=== PATIENT | female | born 1995 | race Caucasian/White ===

== ENCOUNTER 2019-06-04 14:45 | Outpatient (RCR) | payer OTHER, SELFPAY ==
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
--- NOTE | 2019-03-26 18:01 | PCPTNOTE ---
Addendum entered by Dipti Lerma, PT 03/26/19 18:01: cancelled appointment was for 03/27/19. Original Note: Patient called & cancelled scheduled appointment this date due to taking finals.
--- NOTE | 2019-03-31 10:22 | PCPTNOTE ---
Patient called & cancelled scheduled appointment this date due to weather.
--- NOTE | 2019-04-03 15:25 | PCPTNOTE ---
Patient did not show up for scheduled appointment this date.
--- NOTE | 2019-04-07 13:46 | PCPTNOTE ---
Patient called & cancelled scheduled appointment this date no reason reported
--- NOTE | 2019-04-17 10:25 | PCPTNOTE ---
Patient called & cancelled scheduled appointment this date due to having an eye appointment.
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
--- NOTE | 2019-05-12 14:57 | PCPTNOTE ---
Patient called & cancelled scheduled appointment this date due to not being able to attend.
--- NOTE | 2019-05-19 14:59 | PCPTNOTE ---
Patient did not show up for scheduled appointment this date.
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
== END 2019-06-05 09:33 | disposition home or self-care (01) ==
LOC: ANHPT 14:45
PROVIDERS: PCP Physician Assistant; Visit Provider Physician Assistant
DX: M62.838 Other muscle spasm (principal)
CPT/HCPCS: 97110; 97140; 97161

== ENCOUNTER 2019-06-12 14:13 | Emergency (ER) | payer OTHER, SELFPAY ==
--- NOTE | ~2019-06-12 | XR_ITS ---
EXAMINATION: XR thoracic spine 3V DATE: 06/12/2019 16:38 INDICATION: Upper right-sided thoracic and/spasm TECHNIQUE: One AP, lateral and lateral swimmer's views of the thoracic spine were obtained. COMPARISON: None. FINDINGS: 10 degrees thoracic dextroscoliosis measured between T5 and T9. Vertebral body and disc heights are n ormal. Paravertebral soft tissues are unremarkable. This was portions of the lungs are clear with no pleural effusion or pneumothorax. Visualized portion of the cardiac mediastinal silhouette is normal. IMPRESSION: 1. Mild thoracic dextroscoliosis. Reviewed, dictated and finalized at location A. ESSING MGR
[2019-06-12 14:18] VITALS: BP 115/76; PULSE 84; RESP 18; TEMP 36.9; O2SAT 100
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
[2019-06-12] MEDS: KETOROLAC (*BKC) 60 MG/2 ML VIAL IM (17:05)
== END 2019-06-12 17:55 | disposition home or self-care (01) ==
PROVIDERS: Emergency Provider Emergency Medicine; PCP Physician Assistant
DX: M41.84 Other forms of scoliosis, thoracic region (principal)
CPT/HCPCS: 72072; 96372; 99283; J1885

== ENCOUNTER 2020-04-01 13:00 | Outpatient (RCR) | payer OTHER, SELFPAY ==
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
--- NOTE | 2020-02-12 11:02 | PCPTNOTE ---
pt called and canceled today's appt, stated not able to make it, have something else to do
--- NOTE | 2020-02-24 11:08 | PCPTNOTE ---
Patient called & cancelled scheduled appointments this week due to getting test for COVID will call back once results are finalized.
--- NOTE | 2020-03-02 11:38 | PTOPEVAL ---
PHYSICAL THERAPY REEVALUATION AND UPDATED PLAN OF CARE 03-02-2020 Refer to the clinical summary below for her status compared to the initial evaluation. PT is to continue with treatment for neck pain, 2x/week for 4 weeks. Thank you for referring Jessica Ruiz to [facility].? ? Please review, sign, date and return this updated plan of care [facility]. I agree with and certify that the following plan of care is medically necessary. Referring Physician Date Attending Provider: VAHID Joseph *PT Outpatient Re-Evaluation Document 03/02/20 11:05 TACO (Rec: 03/02/20 11:38 TACO [id number]) Subjective Information Jessica reports: went to ER Query Text:As Reported By Patient/ due to back pain--not given Family any answers about it; had to miss a few sessions due to COVID testing, which was negative; needling and exercises have helped pain; Oswestry self assessment functional score of 38% limitation in function; wants to continue therapy for her neck; Pain Assessment Timing of Pain Assessment Timing of Pain Assessment Assessment Pain Scale Pain Scale Used Numeric (1 - 10) Self Report Pain Assessment Bilateral Neck Reported Pain Level 5 Pain Description Aching,Dull,Spasms,Tightness Radicular Pain Location headaches occur daily, usually start end day ~ 7PM, last few hours--takeOTC Pain Frequency Chronic Other Pain Description headaches pounding and ringing in head;awaken with pain in neck from sleep Lowest Pain Intensity 5 Greatest Pain Intensity 7 Pain Aggravating Factors Exercise/Activity Other Pain Aggravating Factors if sleep on couch;dancing- thrashing neck around; Pain Behaviors Anxious,Grimacing,Guarding Pain Score Pain Score 5: Self Report Interventions Used Interventions Used By Clinicians Exercise Pain Relief Interventions Used By Exercise,Heat,Ice,Inactivity/ Patient Rest Other Alleviating Interventions self massage over tight muscles Cervical and Lumbar ROM Cervical ROM Cervical ROM Comments sitting AROM cervical rotation R 60'- tight but not painful/ L 50' with tightness and pain R neck; Upper Extremity Muscle Strength Testing General Upper Extremity Strength Gross Upper Extremity Strength
--- NOTE | 2020-03-25 15:35 | PCPTNOTE ---
Patient called & cancelled scheduled appointment this date due to medical emergency.
--- NOTE | 2020-04-01 13:43 | PTOPEVAL ---
PHYSICAL THERAPY DISCHARGE 04-01-2020 Refer to the clinical summary below, for the comparison from her last reassessment to today. Discharge PT services this date; she is to continue to manage her pain with stretching, heat, positional changes and strengthening exercises. Thank you for referring Jessica Ruiz to [facility].? Please review, sign, date and return this discharge TERENCE. I agree with and certify that the following plan of care is medically necessary. Referring Physician Date Attending Provider: VAHID Joseph PT Discharge Report Document 04/01/20 13:10 TACO (Rec: 04/01/20 13:40 TACO [id number]) Subjective Information Jessica reports: doing Query Text:As Reported By Patient/ better, have learned stretches Family and ways to help pain; have been doing work outs--planks, push ups, yoga. Have muscle soreness of R shoulder due to work outs; with sleeping, after sleeping 5 hours, tend to wake up 1-2 times, due to neck pain or not tired anymore . Self assessment Oswestry score of 28% limitation in activity level. Pain Assessment Timing of Pain Assessment Timing of Pain Assessment Assessment Pain Scale Pain Scale Used Numeric (1 - 10) Self Report Pain Assessment Bilateral Neck Reported Pain Level 5 Pain Description Tightness Pain Frequency Chronic Other Pain Description L side of neck tight spots; Lowest Pain Intensity 3 Greatest Pain Intensity 6 Pain Aggravating Factors Exercise/Activity Other Pain Aggravating Factors thrash with dancing,sleep on couch;driving Pain Score Pain Score 5: Self Report Additional Pain Score Comments headaches- better, other medical issues too- acid reflux with abdominal pain upset the headaches; and had other medical issues too ; get pressure headaches and tightness- 2x/past week, last 2 hours, take advil- eases and diclofen muscle relaxer; - have not had any days could not get out of bed in morning ; Interventions Used Interventions Used By Clinicians Education Pain Relief Interventions Used By Inactivity/Rest Patient
== END 2020-04-02 07:38 | disposition home or self-care (01) ==
LOC: ANHPT 13:00
PROVIDERS: PCP Physician Assistant; Visit Provider Physician Assistant
DX: G89.29 Other chronic pain (principal)
CPT/HCPCS: 97110; 97140; 97161

== ENCOUNTER 2020-05-20 12:25 | Outpatient (CLI) | payer OTHER, SELFPAY ==
--- NOTE | ~2020-05-20 | US_ITS ---
EXAMINATION: US pelvic complete w TV DATE: 05/20/2020 13:09 INDICATION: Ovarian cyst Comparison:Ultrasound dated 03/18/2020 TECHNIQUE: Multiple transabdominal and endovaginal sonographic images of the pelvis performed. FINDINGS: The uterus measures 10.4 x 5.1 x 3.2 cm. The endometrial complex measures 2.4 mm. The right ovary measures 5.1 x 5.7 x 4 cm and the left ovary not visualized. There is a 5 cm right ov martha cyst. There is no free fluid in the pelvis. There are no abnormal masses seen on either side. IMPRESSION: 1. Simple right ovarian cyst measuring 5 cm. Reviewed, dictated and finalized at location A. LY CHAIN TECHNICIAN
== END 2020-05-20 12:26 | disposition home or self-care (01) ==
LOC: ANHIMG 12:30
PROVIDERS: PCP Physician Assistant; Visit Provider Nurse Practitioner Women's Health
DX: N83.291 Other ovarian cyst, right side (principal)
CPT/HCPCS: 76830; 76856

== ENCOUNTER 2020-06-11 20:55 | Emergency (ER) | payer OTHER, SELFPAY ==
--- NOTE | ~2020-06-11 | XR_ITS ---
EXAMINATION: XR chest 1V portable DATE: 06/11/2020 22:45 INDICATION: Shortness of breath. TECHNIQUE: A single frontal view of the chest was obtained. COMPARISON: Chest 2 views 05/10/2019 FINDINGS: The chest demonstrates clear lungs without pneumonia, pleural effusion, or pneumothorax. Th e heart size is normal. IMPRESSION: 1. No acute cardiopulmonary disease. Reviewed, dictated and finalized at location A. UP OPERATOR TOOL
--- NOTE | ~2020-06-11 | CT_ITS ---
EXAMINATION: CT abdomen pelvis w con DATE: 06/12/2020 01:12 INDICATION: Abdominal pain TECHNIQUE: Computed tomography (CT) of the abdomen and pelvis was performed with 100 cc Omnipaque 350 intravenous contrast. Automated exposure control and iterative reconstruction technique were employe d. Exam dose: 638.59 mGy-cm total exam DLP. COMPARISON: May 20, 2020 pelvic ultrasound FINDINGS: Lung bases are clear. Normal heart size. No pericardial or pleural effusion. No hepatic, splenic, pancreatic, adrenal or renal space-occupying mass lesion is evident. Normal marquis myrtle of the abdominal aorta. No intraperitoneal or retroperitoneal or pelvic mass lesion or adenopathy or ascites. Normal appendix. No bowel obstruction, bowel wall thickening, pneumatosis or intraperitoneal free air . 3.8 x 5 cm right ovarian cyst. Uterus and adnexal areas are otherwise unremarkable. Included skeletal structures are unremarkable. Small fat-containing umbilical hernia. IMPRESSION: 3.8 x 5 cm right ovarian cyst Reviewed, dictated and finalized at [facility]. Reviewed, dictated and finalized at location [facility]. ING INSPECTOR
[2020-06-11 21:12] VITALS: BP 147/83; PULSE 119; RESP 24; TEMP 36.6; O2SAT 100
--- NOTE | 2020-06-11 22:31 | ECG_ITS ---
Measurements Intervals [place] Rate: 107 P: 53 IL: 206 QRS: 34 QRSD: 94 T: 26 QT: 327 QTc: 438 Interpretive Statements SINUS TACHYCARDIA ABNORMAL ECG Electronically Signed On 06-12-2020 7:29:03 CUSTOMER DEVELOPMENT REPRESENTATIVE by Efraín Estrada D.O.
--- NOTE | 2020-06-11 22:48 | ED.GENADULT ---
HPI - General Adult General Chief complaint: Unspecified Stated complaint: I feel like I am dying I am puking Time Seen by Provider: 06/11/20 22:24 Source: RN notes reviewed History of Present Illness HPI narrative: Patient presents emergency department from home for multiple complaints. Patient's major complaint is that she has been having intermittent abdominal pain diffusely throughout the abdomen associated with nausea and vomiting states associated with this she has been having intermittent episodes of shortness of breath she states that she has not been feeling well for the past several days she denies any fever chills chest pain or any other symptoms states that she took [id number] medication for pain earlier today but it did not help Related Data Home Medications Medication Instructions Recorded Confirmed cyclobenzaprine mg 05/10/19 diclofenac sodium PO 05/10/19 Allergies Allergy/AdvReac Type Severity Reaction Status Date / Time No Known Allergies Allergy Verified 06/12/19 14:33 Review of Systems Review of Systems: Narrative: Gen.: Denies fevers or chills ENT: Denies congestion Respiratory: Reports intermittent shortness of breath CV: Denies chest pain or palpitations GI: See HPI denies burning, urgency, frequency or hematuria Musculoskeletal: Denies back pain or muscle pain Neuro: Denies numbness, tingling, weakness or focal weakness Skin: Denies rash Except as documented, all other systems reviewed and negative [facility] Past Medical History Medical History (Updated 06/12/20 @ 02:04 by Pineda Noyola DO) No significant past medical history Surgical History Surgical History No significant past surgical history Social History Social History Smoking status: Unknown if ever smoked Substance use type: marijuana Gender identity (if verbalized by the patient): Female Exam Narrative: Exam Narrative: APPEARANCE: Anxious in appearance no acute distress, nontoxic, resting in bed EYES: EOMI HEENT: Normocephalic, atraumatic, OMM RESPIRATORY: No respiratory distress Clear to auscultation bilaterally with no rhonchi wheezing or rales. CARDIOVASCULAR: Regular rate and rhythm without murmurs rubs or gallops. ABDOMINAL: Soft, nontender, diffusely tender to palpation no rebound or guarding MUSCULOSKELETAl: Moves all extremities. No clubbing, cyanosis or edema. NEURO: Awake and alert. Following commands, speech normal, no focal deficits SKIN:: Warm, dry. No rashes lesions or abrasions PSYCHIATRIC: Anxious in appearance normal affect/mood, Course Course Emergency Course: Patient states that they are feeling much better at this time. States abdominal pain has resolved. Repeat abdominal exam shows the patient's abdomen to be soft and nontender. Discussed with patient results of workup and diagnosis. Discussed need for follow-up with primary care physician, reasons to return to the emergency department in proper use of medication. Patient understands and agrees to current treatment plan discussed with patient states she does have DIRECTOR OF SAFETY at [facility] she will follow up with Vital Signs Vital signs: Vital Signs Temperature 97.8 F 06/11/20 21:12 Pulse Rate 119 H 06/11/20 21:12 Respiratory Rate 24 H 06/11/20 21:12 Blood Pressure 147/83 H 06/11/20 21:12 Pulse Oximetry 100 06/11/20 21:12 Temperature 97.8 F 06/11/20 21:12 Pulse Rate 88 06/12/20 01:38 Respiratory Rate 16 06/12/20 01:38 Blood Pressure 138/78 06/12/20 01:38 Pulse Oximetry 100 06/12/20 01:38 Medical Decision Making Vital Signs Vital Signs: Vital Signs Temperature 97.8 F 06/11/20 21:12 Pulse Rate 119 H 06/11/20 21:12 Respiratory Rate 24 H 06/11/20 21:12 Blood Pressure 147/83 H 06/11/20 21:12 Pulse Oximetry 100 06/11/20 21:12 Temperature 97.8 F 06/11/20 21:12
[2020-06-11 23:10] LABS: Basophils Percent Auto 0.2 % (0.2-1.2); Hemoglobin 13.2 g/dL (12.0-15.0); Immature Granulocyte Absolute 0.07 K/mm3 (0.00-0.031); Immature Granulocyte Percent A 0.4 % (0-0.5); Lymphocytes Absolute Auto 1.34 K/mm3 (0.9-3.2); Lymphocytes Percent Auto 8.2 % (18.3-44.2); Mean Corpuscular HGB Conc 33.8 g/dl (32-36); Mean Corpuscular Hemoglobin 29.3 pg (26-34); Mean Corpuscular Volume 86.7 fl (80-100); Mean Platelet Volume 8.6 fl (7.4-10.4); Monocytes Absolute Auto 0.6 K/mm3 (0.1-0.6); Monocytes Percent Auto 3.7 % (2.6-8.5); Neutrophils Absolute Auto 14.4 K/mm3 (1.3-6.7); Neutrophils Percent Auto 87.5 % (45.5-73.1); Platelet Count Result 236 k/mm3 (150-375); White Blood Count 16.4 K/mm3 (4.5-10.0)
[2020-06-11] MEDS: SODIUM CHLORIDE 0.9% IV 1,000 ML 999 ML IV CONT (23:14)
[2020-06-11 23:17] LABS: Add Urine Microscopic? YES; Appearance Urine Clear (Clear); Bacteria Urine 1+ /hpf; Bilirubin Urine Negative (Negative); Blood Urine 2+ (Negative); Color Urine Colorless (Yellow); Glucose Urine UA Negative (Negative); Ketones Urine Negative (Negative); Leukocyte Esterase Ur Negative LEU/UL (Negative); Mucus Urine Rare /lpf; Nitrate Urine Negative (Negative); Protein Urine Negative (Negative); Specific Grav Ur 1.005 (1.001-1.035); Squamous Epithelial Cell Urine Occasional /hpf (Few); Urobilinogen Urine Negative mg/dL (<2.0); WBC Urine 0-3 /hpf
[2020-06-11] MEDS: LORazepam INJ (*CRX) 2 MG/ML VIAL 0.5 MG IV PUSH (23:17)
[2020-06-11 23:24] LABS: Alanine Aminotransferase 21 U/L (4-35); Albumin Level 4.5 g/dL (3.5-5.1); Alkaline Phosphatase 72 U/L (38-126); Anion Gap 11 mmol/L (8-16); Aspartate Amino Transferase 27 U/L (14-36); Bilirubin,Total 0.3 mg/dL (0.2-1.3); Blood Urea Nitrogen 9 mg/dL (7-17); Calcium 9.3 mg/dL (8.4-10.2); Carbon Dioxide 25 mmol/L (22-30); Chloride 105 mmol/L (98-107); Estimated CRCL calculation 104 ml/min; Estimated Glomerular Filt Rate > 60; Glucose 130 mg/dL (65-105); Lipase 70 U/L (23-300); Potassium 3.8 mmol/L (3.4-5.0); Sodium 141 mmol/L (137-145)
[2020-06-12 00:41] VITALS: BP 132/72; PULSE 93; RESP 16; O2SAT 100
--- NOTE | 2020-06-12 00:45 | PC.NURSE ---
pt states she feels better but states she still feels like her stomach is turning inside out.
[2020-06-12 01:38] VITALS: BP 138/78; PULSE 88; RESP 16; O2SAT 100
[2020-06-12 02:14] VITALS: BP 119/77; PULSE 72; RESP 16; O2SAT 99
== END 2020-06-12 02:15 | disposition home or self-care (01) ==
PROVIDERS: Emergency Provider Emergency Medicine; PCP Physician Assistant
DX: N83.201 Unspecified ovarian cyst, right side (principal); F41.9 Anxiety disorder, unspecified
CPT/HCPCS: 36415; 71045; 74177; 80053; 81001; 81025; 83690; 85025; 93005; 96361; 96374; 99284; J2060; J7030; Q9967

== ENCOUNTER 2020-12-05 19:30 | Emergency (ER) | payer OTHER, SELFPAY ==
--- NOTE | ~2020-12-05 | CT_ITS ---
EXAMINATION: CT cervical spine wo con EXAM DATE: 12/05/2020 22:23 INDICATION: Chronic cervical pain. TECHNIQUE: Spiral CT of the cervical spine was performed without contrast. Axial images were reviewe d. Coronal and sagittal reformatted images cervical spine were also reviewed. The dose-length produc t (DLP) for this examination was 429.82 mGy-cm. The exposure was tailored according to patient size (auto mA exposure control), and iterative reconstruction (ASIR) was used as additional dose reduction technique. There is no prior study for comparison. FINDINGS: There is mild reversal of the normal cervical lordosis which may be positional or spasm. T here is minimal mid cervical disc disease. The vertebral bodies are aligned in the AP dimension. Vert ebral body heights are maintained. There is only mild cervical arthropathy, without any appreciable c entral canal or neural foraminal stenosis. Paraspinal soft tissue is unremarkable. IMPRESSION: 1. Reversal of cervical lordosis, could be spasm. 2. Mild cervical arthropathy without stenosis. Reviewed, dictated and finalized at location [facility].
--- NOTE | ~2020-12-05 | CT_ITS ---
EXAMINATION: CT thoracic lumbar wo con EXAM DATE: 12/05/2020 22:24 INDICATION: Chronic back pain . TECHNIQUE: Spiral CT thoracolumbar spine was performed without contrast. Axial, coronal and sagittal images of the thoracic spine were reviewed. Axial, coronal and sagittal images of the lumbar spine we re reviewed. The dose-length product (DLP) for this examination was 1757.41 mGy-cm. The exposure was tailored according to patient size (auto mA exposure control), and iterative reconstruction (ASIR) w as used as additional dose reduction technique. There is no prior study for comparison. FINDINGS: THORACIC SPINE: There is about 13 degrees of mid thoracic dextroscoliosis. The vertebral bodies are a ligned in the AP dimension. Vertebral body and disc heights are well-maintained. No thoracic spondylo lysis or endplate erosive change. Facet joints are unremarkable. LUMBAR SPINE: Incidental 5 cm right ovarian cystic lesion probably physiologic or hemorrhagic cyst. There is no evidence of acute lumbar fracture. There is no disc space widening or traumatic vertebra l body subluxation suspected. Paraspinal soft tissue is unremarkable. Vertebral body and disc heigh ts are well-maintained. Central canal and neural foramen are patent.Mild mid and lower thoracic facet arthropathy. Sacroiliac joints unremarkable. Normal appendix. A detailed level by level evaluation of spondylosis can be added as addendum if requested. IMPRESSION: 1. Mild mid thoracic dextroscoliosis. 2. Mild lumbar facet arthropathy. Reviewed, dictated and finalized at location [facility].
[2020-12-05 19:32] VITALS: BP 140/96; PULSE 104; RESP 17; TEMP 36.8; O2SAT 100
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
[2020-12-05 21:20] VITALS: BP 146/82; PULSE 80; RESP 20; O2SAT 100
[2020-12-05] MEDS: KETOROLAC 30 MG/ML VIAL (*BKC) IV PUSH (21:36)
[2020-12-05 23:28] VITALS: BP 105/92; PULSE 72; RESP 18; O2SAT 99
[2020-12-06 00:38] VITALS: BP 105/67; PULSE 72; RESP 18; O2SAT 100
== END 2020-12-06 00:41 | disposition home or self-care (01) ==
PROVIDERS: Emergency Provider Emergency Medicine; PCP Physician Assistant
DX: M54.9 Dorsalgia, unspecified (principal); G89.29 Other chronic pain
CPT/HCPCS: 72125; 72128; 72131; 81025; 96374; 99284; J1885

== ENCOUNTER 2021-01-26 13:30 | Outpatient (RCR) | payer OTHER, SELFPAY ==
--- NOTE | 2020-11-03 09:49 | PTOPEVAL ---
PHYSICAL THERAPY EVALUATION Thank you for referring Jessica Ruiz to [facility].? Jessica was evaluated for the dx of cervical pain. The patient is scheduled to be seen for therapy? 1 x/week for 4 weeks (to begin in 1 month after return from trip). Please review, sign, date and return this plan of care TERENCE. I agree with and certify that the following plan of care is medically necessary. Referring Physician Date Attending Provider: Lissette Coronel, VAHID *PT Outpatient Evaluation Start: 11/03/20 08:38 Freq: Status: Active Protocol: Document 11/03/20 08:39 MLV (Rec: 11/03/20 09:33 MLV [id number]) Therapy Assessment Status Assessment Status Assessment Status Evaluation Evaluation Information Problem Diagnosis neck pain Cause The Additional Evaluation Detail The patient has pain in her neck that has returned from a prior event that occurred about 1 year ago. The patient has had therapy and was doing her exercises but the bands have broken. The patient reports having scoliosis and believes this is what causes her neck pain. The patient does yoga regularly and runs on occasion, and is active with her friends. The patient reports tightness at neck and upper trap area. Subjective Information The patient's goal is to build Query Text:As Reported By Patient/ neck and spine strength for Family stability to decrease pain flare ups and to prevent any major issues with her spine. NOTE: PATIENT TO BE GONE 1 MONTH TO [place] AFTER TODAY- NEXT APPT TO BE 1 MONTH FROM NOW THEN CONTINUE PRN. Previous Treatments Previous Treatments For This Problem PT a year ago; helped decrease pain intensity Pain Assessment Timing of Pain Assessment Timing of Pain Assessment Assessment Pain Scale Pain Scale Used Numeric (1 - 10) Self Report Pain Assessment Spine, Thoracic Reported Pain Level 0 Pain Description Pressure,Tender on Palpation Pain Frequency Acute,Chronic,Intermittent Greatest Pain Intensity 6 Pain Aggravating Factors Palpation Pain Behaviors None Neck Reported Pain Level 4 Pain Frequency
--- NOTE | 2020-12-06 08:32 | PCPTNOTE ---
Patient called & cancelled scheduled appointment this date due to illness. Just returned from [place] trip, was in ER last night and now not feeling well.
--- NOTE | 2020-12-13 15:13 | PCPTNOTE ---
Patient called & cancelled scheduled appointment this date due to weather.
--- NOTE | 2020-12-27 11:14 | PTOPEVAL ---
PHYSICAL THERAPY RE-EVALUATION Thank you for referring Jessica Ruiz to [facility].? Jessica was re-assessed for the dx of cervicothoracic pain. The patient is scheduled to be seen for therapy?2 x/week for 4 weeks. Please review, sign, date and return this plan of care TERENCE. I agree with and certify that the following plan of care is medically necessary. Referring Physician Date Attending Provider: Lissette Coronel, VAHID *PT Outpatient Re-Evaluation Start: 11/03/20 08:38 Freq: Status: Active Protocol: Document 12/27/20 08:53 MLV (Rec: 12/27/20 09:29 MLV [id number]) Therapy Assessment Status Assessment Status Assessment Status Re-evaluation Evaluation Information Problem Diagnosis neck pain Additional Evaluation Detail Pt has returned from trip to [place]. the patient reports severe pain at thoracic spine that she went to the ER for. The patient currently takes a pill for nerve pain but reports getting more pain and now in her hands too. The patient has had thoracic shooting pains. the pt reports compliance with her HEP and it helps her symptoms relieve. Pt is concerned about the cause of her symptoms and is to see a neurologist soon. Pain Assessment Timing of Pain Assessment Timing of Pain Assessment Assessment Pain Scale Pain Scale Used Numeric (1 - 10) Self Report Pain Assessment Spine, Thoracic Reported Pain Level 4 Pain Description Soreness Pain Frequency Acute,Chronic Other Pain Description 10 with spasms and occurs multiple times a day Other Pain Aggravating Factors dancing Pain Behaviors Irritable Neck Reported Pain Level 5 Radicular Pain Location pain is a fatigue feeling Pain Score Pain Score 4,5: Self Report Interventions Used Interventions Used By Clinicians Education,Electrical Stimulation,Exercise,Heat, Joint Mobilization,Manual Therapy Techniques Pain Relief Interventions Used By Exercise,Ice Patient Cervical and Lumbar ROM Cervical ROM Cervical Flexion (0-60) 49 Query Text:Active in Degrees Cervical Extension (0-70) 62 Query Text:Active in Degrees Cervical Lateral Flexion Right (0-50) 37 Query Text:
--- NOTE | 2021-01-03 11:34 | PCPTNOTE ---
Patient called & cancelled scheduled appointment this date due to having a meeting with school advisor.
--- NOTE | 2021-01-07 11:37 | PCPTNOTE ---
Patient called & cancelled scheduled appointment this date due to not feeling well.
--- NOTE | 2021-01-26 14:18 | PTOPEVAL ---
PHYSICAL THERAPY DISCHARGE Thank you for referring Jessica Ruiz to [facility].? The patient has completed 7 visits for the dx of chronic neck pain. Goals are partially met and peaked with skilled PT. DC PT. Please review, sign, date and return this plan of care TERENCE. I agree with and certify the following plan of care. Referring Physician Date Attending Provider: Lissette Coronel, PA *PT Outpatient Evaluation Start: 11/03/20 08:38 Freq: Status: Active Protocol: Document 01/26/21 13:34 MLV (Rec: 01/26/21 14:10 MLV [id number]) Therapy Assessment Status Assessment Status Assessment Status Discharge Evaluation Information Problem Diagnosis neck pain Additional Evaluation Detail Pt feels overall that her pain is better and has noted improvement with her exercises. The patient reports relief with the current nerve medication. The patient had an appt with her MD and she is being checked for other issues due to multiple system issues. Pain Assessment Timing of Pain Assessment Timing of Pain Assessment Assessment Pain Scale Pain Scale Used Numeric (1 - 10) Self Report Pain Assessment Spine, Thoracic Reported Pain Level 4 Neck Reported Pain Level 5 Pain Score Pain Score 4,5: Self Report Interventions Used Interventions Used By Clinicians Electrical Stimulation, Exercise,Heat,Manual Therapy Techniques Pain Relief Interventions Used By Exercise,Ice Patient Other Alleviating Interventions nerve pill Cervical and Lumbar ROM Cervical ROM Cervical Flexion (0-60) 49 Query Text:Active in Degrees Cervical Extension (0-70) 62 Query Text:Active in Degrees Cervical Lateral Flexion Right (0-50) 40 Query Text:Active in Degrees Cervical Lateral Flexion Left (0-50) 51 Query Text:Active in Degrees Cervical Rotation Right (0-90) 55 Query Text:Active in Degrees Cervical Rotation Left (0-90) 58 Query Text:Active in Degrees Cervical and Lumbar Muscle Testing Cervical Muscle Testing Cervical Flexion 4-Good- Cervical Extension 4-Good- Cervical Lateral Flexion Right 4-Good- Cervical Lateral Flexion Left 4-Good- Muscle Length Testing Muscle Length Testing Scalene Group Muscle Length (R) WFL,(L) WFL Query Text: Upper Trapezius Muscle Length (R) WFL,(L) WFL Levaetor Scapulae Muscle Length (R) WFL,(L)
== END 2021-01-27 09:19 | disposition home or self-care (01) ==
LOC: ANHPT 13:30
PROVIDERS: PCP Physician Assistant; Visit Provider Physician Assistant
DX: M54.2 Cervicalgia (principal)
CPT/HCPCS: 97014; 97110; 97140; 97161; G0283

== ENCOUNTER 2021-04-23 22:56 | Emergency (ER) | payer OTHER, SELFPAY ==
--- NOTE | ~2021-04-23 | CT_ITS ---
EXAMINATION: CTA chest abdomen pelvis DATE: 04/24/2021 09:16 LEAD CUSTODIAN INDICATION: Back and chest pain. History of Ehler Danlos disease. TECHNIQUE: Computed tomographic angiography (CTA) of the chest, abdomen, and pelvis was performed wit hout and with 100 mL Omnipaque-350 intravenous contrast. The dose-length product was 1132.03 mGy-cm. Maximum intensity projection 3D-reconstructions of the aorta and other arteries were constructed by elmo carpenter technologist on a separate workstation. Automated exposure control and iterative reconstruction te duranque were employed. COMPARISON: CT dated 06/12/2020. FINDINGS: CHEST CTA: No evidence for aortic aneurysm or dissection. No central pulmonary embolism. Heart size normal. No s ignificant pleural or pericardial effusion. No thoracic lymphadenopathy. Thyroid gland is unremarkabl e. No endobronchial lesions. No focal airspace disease. No suspicious pulmonary nodules or masses. No pneumothorax. ABDOMEN AND PELVIS CTA: The liver, spleen, pancreas, adrenal glands and kidneys are unremarkable. Nonobstructive bowel gas pa ttern. No evidence for aortic aneurysm or dissection. These celiac axis, SMA, YONG and renal arteries are widely patent. There are bilateral ovarian cysts measuring up to 5.5 cm in the right ovary. Nonob structive bowel gas pattern. No evidence for appendicitis or diverticulitis. No free air or free flui d. IMPRESSION: 1. No evidence for significant vascular abnormality. 2: Bilateral ovarian cysts, largest measuring up to 5.5 cm in the right ovary. Recommend follow-up u ltrasound to assess for resolution in 4-6 weeks. Reviewed, dictated and finalized at location [facility]. CUSTODIAN IMPRESSION: 1. No evidence for significant vascular abnormality. 2: Bilateral ovarian cysts, largest measuring up to 5.5 cm in the right ovary. Recommend follow-up ultrasound to assess for resolution in 4-6 weeks.
[2021-04-23 22:59] VITALS: BP 140/119; PULSE 117; RESP 18; TEMP 35.7; O2SAT 100
[2021-04-24] VITALS (14 sets, daily range): BP systolic 95–117; BP diastolic 59–76; PULSE 67–81; RESP 12–20; O2SAT 97–100
--- NOTE | 2021-04-24 00:41 | ECG_ITS ---
Measurements Intervals [place] Rate: 72 P: 60 [place]: 203 QRS: 31 QRSD: 93 T: 46 QT: 386 QTc: 424 Interpretive Statements SINUS RHYTHM BORDERLINE AV CONDUCTION DELAY BORDERLINE ECG Electronically Signed On 04-24-2021 6:12:23 HOUSEKEEPER AND LAUNDRY ASSISTANT by Efraín Estrada D.O.
[2021-04-24 01:13] LABS: Basophils Percent Auto 0.4 % (0.2-1.2); Eosinophils Absolute Auto 0.2 K/mm3 (0-0.3); Eosinophils Percent Auto 1.5 % (0-4.4); Hematocrit 38.9 % (37.0-47.0); Hemoglobin 12.7 g/dL (12.0-15.0); Immature Granulocyte Absolute 0.02 K/mm3 (0.00-0.031); Immature Granulocyte Percent A 0.2 % (0-0.5); Lymphocytes Absolute Auto 3.06 K/mm3 (0.9-3.2); Lymphocytes Percent Auto 31.3 % (18.3-44.2); Mean Corpuscular HGB Conc 32.6 g/dl (32-36); Mean Corpuscular Hemoglobin 28.9 pg (26-34); Mean Corpuscular Volume 88.4 fl (80-100); Mean Platelet Volume 8.3 fl (7.4-10.4); Monocytes Absolute Auto 0.9 K/mm3 (0.1-0.6); Neutrophils Absolute Auto 5.6 K/mm3 (1.3-6.7); Neutrophils Percent Auto 57.6 % (45.5-73.1); Platelet Count Result 235 k/mm3 (150-375); Red Cell Distribution Width 13.8 % (11.5-14.5); White Blood Count 9.8 K/mm3 (4.5-10.0)
[2021-04-24 01:22] LABS: INR 0.9; Lactic Acid Reflex 0.6 mmol/L (0.7-2.1); Lipase 85 U/L (23-300); Magnesium 1.9 mg/dL (1.6-2.3); Prothrombin Time 12.4 Seconds (11.1-14.7)
[2021-04-24 01:23] LABS: Partial Thromboplastin Time 29.4 SECONDS (22.3-36.8)
--- NOTE | 2021-04-24 01:23 | ED.GENADULT ---
HPI - General Adult General Chief complaint: Unspecified Stated complaint: MULTIPLE COMPLAINTS, PAIN ALL OVER Time Seen by Provider: 04/24/21 00:35 History of Present Illness HPI narrative: Patient is a 25-year-old female presents the emergency department with chief complaint of back pain. 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 Patient states the pain is also gone into the neck and reports that it hurts whenever she swallows. Patient denies fever denies chills the patient states symptoms or not improved by anything. Patient denies any focal neurological deficits reports she is able to handle her own secretions patient reports she has been vaccinated for Covid. Related Data Home Medications Medication Instructions Recorded Confirmed norgestimate-ethinyl estradiol tablet 12/05/20 [Tri-Lo-Lashell] omeprazole 12/05/20 topiramate 12/05/20 venlafaxine mg PO 12/05/20 venlafaxine mg PO 12/05/20 Allergies Allergy/AdvReac Type Severity Reaction Status Date / Time No Known Allergies Allergy Verified 04/23/21 23:02 Review of Systems Review of Systems: A 10 system review of systems was completed on the patient and is negative except for what is stated in the HPI. Nursing and ancillary documentation was reviewed. [facility] Past Medical History Medical History Chronic back pain No significant past medical history Surgical History Surgical History No significant past surgical history Social History Social History Smoking status: Unknown if ever smoked Substance use type: marijuana Gender identity (if verbalized by the patient): Female Exam Narrative: GENERAL: Well-appearing, well-nourished, and in no acute distress. HEAD: Normocephalic, atraumatic. EYES: PERRLA and EOMI. ENT: Nares clear, no rhinorrhea or epistaxis. Mucous membranes moist. NECK: Supple. CHEST: Clear to auscultation. No respiratory distress. HEART: Regular rate and rhythm. No murmur heard. Normal peripheral pulses. ABDOMEN: Soft, nontender, nondistended, normal active bowel sounds. EXTREMITIES: Normal range of motion. No edema. SKIN: Warm, dry, no rash. NEURO: No focal deficits. Alert and oriented x3. PSYCH: Normal mood and affect. Course Course Emergency Course: CTA chest abdomen pelvis showed no evidence of aneurysm or dissection CT of the abdomen included no evidence of dissection or aneurysm or bilateral ovarian cyst Vital Signs Vital signs: Vital Signs Temperature 35.7 C L 04/23/21 22:59 Pulse Rate 117 H 04/23/21 22:59 Respiratory Rate 18 04/23/21 22:59 Blood Pressure 140/119 H 04/23/21 22:59 Pulse Oximetry 100 04/23/21 22:59 Temperature 35.7 C L 04/23/21 22:59 Pulse Rate 81 04/24/21 03:30 Respiratory Rate 18 04/24/21 03:30 Blood Pressure 101/59 L 04/24/21 01:16 Pulse Oximetry 97 04/24/21 03:30 Medical Decision Making Vital Signs Vital Signs: Vital Signs Temperature 35.7 C L 04/23/21 22:59 Pulse Rate 117 H 04/23/21 22:59 Respiratory Rate 18 04/23/21 22:59 Blood Pressure 140/119 H 04/23/21 22:59 Pulse Oximetry 100 04/23/21 22:59 Temperature 35.7 C L 04/23/21 22:59 Pulse Rate 81 04/24/21 03:30 Respiratory Rate 18 04/24/21 03:30 Blood Pressure 101/59 L 04/24/21 01:16 Pulse Oximetry 97 04/24/21 03:30 Lab Data Result diagrams: 04/24/21 01:06 04/24/21 01:06 Labs: Lab Results 04/24/21 04/24/21 04/24/21 Range/Units 01:04 01:06 01:06 WBC 9.8 (4.5-10.0) K/mm3 RBC 4.40 (4.2-5.4) M/mm3 Hgb 12.7 (12.0-15.0) g/dL Hct 38.9 (37.0-47.0) % MCV 88.4 (80-100) fl MCH 28.9 (26-34) pg MCHC 32.6 (32-36) g/dl RDW 13
[2021-04-24 01:34] LABS: Troponin I < 0.012 ng/mL (0.000-0.034)
[2021-04-24 01:49] LABS: Alanine Aminotransferase 48 U/L (4-35); Albumin Level 4.3 g/dL (3.5-5.1); Alkaline Phosphatase 78 U/L (38-126); Anion Gap 9 mmol/L (8-16); Aspartate Amino Transferase 35 U/L (14-36); Bilirubin,Total 0.4 mg/dL (0.2-1.3); Blood Urea Nitrogen 10 mg/dL (7-17); Calcium 9.1 mg/dL (8.4-10.2); Carbon Dioxide 24 mmol/L (22-30); Chloride 104 mmol/L (98-107); Estimated CRCL calculation 105 ml/min; Estimated Glomerular Filt Rate > 60; Glucose 103 mg/dL (65-110); Potassium 3.6 mmol/L (3.4-5.0); Sodium 137 mmol/L (137-145)
--- NOTE | 2021-04-24 02:09 | PC.NURSE ---
Patient being taken to CT via stretcher.
[2021-04-24 04:03] LABS: SARS-CoV-2 RNA PCR Negative
[2021-04-24] MEDS: KETOROLAC 30 MG/ML VIAL (*BKC) IV PUSH (04:06)
== END 2021-04-24 04:14 | disposition home or self-care (01) ==
PROVIDERS: Emergency Provider Emergency Medicine; PCP Physician Assistant
DX: M54.9 Dorsalgia, unspecified (principal); N83.202 Unspecified ovarian cyst, left side; N83.201 Unspecified ovarian cyst, right side; Q79.60 Ehlers-Danlos syndrome, unspecified; Z20.822 Contact with and (suspected) exposure to COVID-19; R94.31 Abnormal electrocardiogram [ECG] [EKG]
CPT/HCPCS: 36415; 71275; 74174; 80053; 81025; 83605; 83690; 83735; 84484; 85025; 85610; 85730; 87081; 87804; 87880; 93005; 96374; 99284; C9803; J1885; Q9967; U0003; U0005

== ENCOUNTER 2021-05-22 17:02 | Emergency (ER) | payer OTHER, SELFPAY ==
--- NOTE | ~2021-05-22 | XR_ITS ---
EXAMINATION: XR chest 2V, XR thoracic spine 3V EXAM DATE: 05/22/2021 20:44 (accession [id number]), 05/22/2021 20:45 (accession [id number]) INDICATION: Chest pain after hearing a crack. Mid back pain. TECHNIQUE: Frontal and lateral projections of the chest obtained and reviewed. Frontal, lateral and s hu's projections of the thoracic spine. Correlation was made with chest x-ray from 06/11/2019. FINDINGS: No confluent consolidation, pneumothorax or pleural effusion suspected. Cardiomediastinal silhouette is normal. Thoracic spine vertebral bodies are aligned, disc space is maintained, and no acute fracture line is identified. IMPRESSION: 1. No acute cardiopulmonary findings. 2. No acute thoracic spine findings. Reviewed, dictated and finalized at location G. ONAL ACCOUNT DIRECTOR IMPRESSION: 1. No acute cardiopulmonary findings. 2. No acute thoracic spine findings.
[2021-05-22 17:11] VITALS: BP 171/99; PULSE 92; RESP 20; TEMP 37; O2SAT 100
[2021-05-22 19:42] VITALS: BP 113/72; PULSE 70; RESP 19; TEMP 36.2; O2SAT 99
--- NOTE | 2021-05-22 20:23 | ED.BACK ---
HPI - Back Pain/Injury General Chief Complaint: Back Pain/Injury Stated Complaint: BACK PAIN Time Seen by Provider: 05/22/21 20:22 Source: patient Mode of arrival: EMS Limitations: no limitations History of Present Illness HPI Narrative: Patient is a 26-year-old female complaining of mid and upper back pain, 8 out of 10, sharp, radiating to her frontal chest started prior to arrival after she heard a crack when she moved from the couch. 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 Patient has a history of chronic back pain. Patient was seen here last month due to back pain, had labs and CTA of her chest abdomen pelvis done, nothing acute was seen. Related Data Home Medications Medication Instructions Recorded Confirmed norgestimate-ethinyl estradiol tablet 12/05/20 [Tri-Lo-Lashell] omeprazole 12/05/20 topiramate 12/05/20 venlafaxine mg PO 12/05/20 venlafaxine mg PO 12/05/20 Allergies Allergy/AdvReac Type Severity Reaction Status Date / Time No Known Allergies Allergy Verified 04/23/21 23:02 Review of Systems Review of Systems: All systems reviewed & are unremarkable except as noted in HPI and below Constitutional: Constitutional: Denies body ache(s), Denies chills, Denies excessive sweating, Denies fatigue, Denies fever(s), Denies headache(s), Denies lethargy, Denies malaise, Denies weakness and Denies weight loss Eyes: Eyes: Denies blurry vision, Denies change in vision and Denies loss of vision ENT: Denies dizziness, Denies ear discharge, Denies headache(s), Denies lip swelling, Denies epistaxis, Denies nasal congestion, Denies neck pain, Denies throat swelling and Denies tongue swelling Cardiovascular: Cardiovascular: Denies chest pain, Denies chest pain at rest, Denies chest pain with activity, Denies diaphoresis, Denies rapid heart rate, Denies edema, Denies irregular heart rhythm, Denies lightheadedness, Denies palpitations, Denies dyspnea and Denies dyspnea on exertion Respiratory: Respiratory: Denies chest congestion, Denies cough, Denies hemoptysis, Denies dyspnea and Denies dyspnea on exertion Gastrointestinal: Gastrointestinal: Denies abdominal pain, Denies melena, Denies hematochezia, Denies diarrhea, Denies nausea, Denies vomiting and Denies hematemesis Musculoskeletal: Musculoskeletal: Denies abnormal gait, Denies deformity, Denies joint swelling, Denies limited range of motion, Denies neck pain and Denies numbness Neurologic: Denies Abnormal speech present, Denies abnormal gait, Denies confusion, Denies dizziness, Denies headache(s), Denies focal weakness, Denies loss of vision, Denies numbness, Denies Other visual disturbances, Denies Sensory deficit (Neuro) and Denies weakness Psychiatric: Psychiatric: Denies confusion, Denies depression, Denies auditory hallucinations, Denies homicidal ideation and Denies suicidal ideation Endocrine: Endocrine: Denies cold intolerance, Denies excessive sweating, Denies fatigue, Denies heat intolerance and Denies palpitations Hematologic/Lymphatic: Hematologic/Lymphatic: Denies easy bleeding and Denies easy bruising Allergic/Immunologic: Allergic/Immunologic: Denies lip swelling, Denies throat swelling and Denies tongue swelling PMFSH Past Medical History Medical History Chronic back pain No significant past medical history Surgical History Surgical History No significant past surgical history Social History Social History Smoking status: Unknown if ever smoked Substance use type: marijuana Gender identity (if verbalized by the patient): Female Exam Const: General: cooperative, healthy appearing, comfortable, no acute distress, well developed, alert and awake; No confusion Orientation/consciousness: oriented to person, oriented to
--- NOTE | 2021-05-22 20:24 | ECG_ITS ---
Measurements Intervals [place] Rate: 65 P: 44 NC: 195 QRS: 62 QRSD: 81 T: 44 QT: 416 QTc: 435 Interpretive Statements SINUS RHYTHM BASELINE ARTIFACT- I, II, III, AVR, AVL, AVF, V1-V6 NORMAL ECG Electronically Signed On 05-23-2021 6:16:47 ENERGY SYSTEMS LABORATORY DIRECTOR by Efraín Estrada D.O.
[2021-05-22] MEDS: diazePAM (*CRX) 5 MG TABLET 2.5 MG PO (21:53)
[2021-05-22] MEDS: KETOROLAC 30 MG/ML VIAL (*BKC) IM (21:54)
--- NOTE | 2021-05-22 22:09 | PC.NURSE ---
PT updated on need to stay for MRI tomorrow. Pt agrees and accepts treatment plan.
== END 2021-05-22 22:43 | disposition home or self-care (01) ==
PROVIDERS: Emergency Provider Emergency Medicine; PCP Physician Assistant
DX: S29.019A Strain of muscle and tendon of unspecified wall of thorax, initial encounter (principal); Q79.60 Ehlers-Danlos syndrome, unspecified; X50.0XXA Overexertion from strenuous movement or load, initial encounter
CPT/HCPCS: 71046; 72072; 93005; 96372; 99284; A9270; J1885

== ENCOUNTER 2021-05-28 20:35 | Emergency (ER) | payer OTHER, SELFPAY ==
--- NOTE | ~2021-05-28 | XR_ITS ---
EXAMINATION: XR chest 2V DATE: 05/28/2021 21:15 INDICATION: Right chest pain. TECHNIQUE: Frontal and lateral views of the chest were obtained. COMPARISON: Chest 2 views 05/22/2021, chest CT 04/24/2021 FINDINGS: The chest demonstrates clear lungs without pneumonia, pleural effusion, or pneumothorax. Th e heart size is normal. IMPRESSION: 1. No acute cardiopulmonary disease. Reviewed, dictated and finalized at location E. R
--- NOTE | 2021-05-28 20:49 | ECG_ITS ---
Rate 77 HI 177 QRSd 86 QT 400 QTc 453 --[place]-- P 75 QRS 49 T 40 SINUS RHYTHM WITH SINUS ARRHYTHMIA POSSIBLE LEFT ATRIAL ENLARGEMENT CANNOT RULE OUT SEPTAL INFARCT, AGE INDETERMINATE BASELINE ARTIFACT- I, II, III, AVR, AVL, AVF, V1-V6 ABNORMAL ECG Electronically Signed On 05-30-2021 13:23:15 DAIRY CLERK by Efraín WAY
--- NOTE | 2021-05-28 20:53 | ED.CHESTPAIN ---
HPI - Chest Pain General Chief Complaint: Chest Pain Stated Complaint: SOB, cp Time Seen by Provider: 05/28/21 20:44 Source: patient Mode of arrival: ambulatory Limitations: no limitations History of Present Illness HPI narrative: Patient is a 26-year-old female complaining of chest pain, midsternal, sharp, 8 out of 10, nonradiating accompanied by sore throat and shortness of breath started tonight. Patient was seen here 3 days ago for similar complaints of chest pain and shortness of breath. Patient denies any abdominal pain, nausea, vomiting, diaphoresis, fever or chills. Related Data Home Medications Medication Instructions Recorded Confirmed omeprazole 12/05/20 topiramate 12/05/20 venlafaxine mg PO 12/05/20 acyclovir 400 mg PO DAILY 05/28/21 05/28/21 Allergies Allergy/AdvReac Type Severity Reaction Status Date / Time No Known Allergies Allergy Verified 05/28/21 21:42 Review of Systems Review of Systems: All systems reviewed & are unremarkable except as noted in HPI and below Constitutional: Constitutional: Denies body ache(s), Denies chills, Denies excessive sweating, Denies fatigue, Denies fever(s), Denies headache(s), Denies lethargy, Denies malaise, Denies weakness and Denies weight loss Eyes: Eyes: Denies blurry vision, Denies change in vision and Denies loss of vision ENT: Denies dizziness, Denies ear discharge, Denies headache(s), Denies lip swelling, Denies epistaxis, Denies nasal congestion, Denies neck pain, Denies throat swelling and Denies tongue swelling Cardiovascular: Cardiovascular: Denies diaphoresis, Denies rapid heart rate, Denies edema, Denies irregular heart rhythm, Denies lightheadedness and Denies palpitations Respiratory: Respiratory: Denies chest congestion, Denies cough and Denies hemoptysis Gastrointestinal: Gastrointestinal: Denies abdominal pain, Denies melena, Denies hematochezia, Denies diarrhea, Denies nausea, Denies vomiting and Denies hematemesis Musculoskeletal: Musculoskeletal: Denies abnormal gait, Denies deformity, Denies joint swelling, Denies limited range of motion, Denies neck pain and Denies numbness Neurologic: Denies Abnormal speech present, Denies abnormal gait, Denies confusion, Denies dizziness, Denies headache(s), Denies focal weakness, Denies loss of vision, Denies numbness, Denies Other visual disturbances, Denies Sensory deficit (Neuro) and Denies weakness Psychiatric: Psychiatric: Denies confusion, Denies depression, Denies auditory hallucinations, Denies homicidal ideation and Denies suicidal ideation Endocrine: Endocrine: Denies cold intolerance, Denies excessive sweating, Denies fatigue, Denies heat intolerance and Denies palpitations Hematologic/Lymphatic: Hematologic/Lymphatic: Denies easy bleeding and Denies easy bruising Allergic/Immunologic: Allergic/Immunologic: Denies lip swelling, Denies throat swelling and Denies tongue swelling PMFSH Past Medical History Medical History Chronic back pain No significant past medical history Surgical History Surgical History No significant past surgical history Social History Social History Smoking status: Unknown if ever smoked Substance use type: marijuana Gender identity (if verbalized by the patient): Female Comments Past medical history: Maris-Danlos, anxiety Family history: Negative for coronary disease or MT Social history: Positive for smoker, no EtOH use, marijuana use Exam Const: General: cooperative, healthy appearing, comfortable, no acute distress, well developed, alert and awake; No confusion Orientation/consciousness: oriented to person, oriented to place, oriented to time, patient oriented x3 and No confusion Limitations: no limitations HENMT: Head: normal to inspection, normocephalic and atraumatic Ears: heari
[2021-05-28 21:00] VITALS: BP 146/94; PULSE 80; RESP 18; O2SAT 100
[2021-05-28 21:05] VITALS: PULSE 80
[2021-05-28 21:13] LABS: Basophils Absolute Auto 0.1 K/mm3 (0.0-0.1); Basophils Percent Auto 0.4 % (0.2-1.2); Eosinophils Absolute Auto 0.1 K/mm3 (0-0.3); Eosinophils Percent Auto 0.8 % (0-4.4); Hematocrit 41.8 % (37.0-47.0); Hemoglobin 13.7 g/dL (12.0-15.0); Immature Granulocyte Absolute 0.04 K/mm3 (0.00-0.031); Immature Granulocyte Percent A 0.4 % (0-0.5); Lymphocytes Absolute Auto 4.01 K/mm3 (0.9-3.2); Lymphocytes Percent Auto 35.2 % (18.3-44.2); Mean Corpuscular HGB Conc 32.8 g/dl (32-36); Mean Corpuscular Hemoglobin 29.5 pg (26-34); Mean Corpuscular Volume 90.1 fl (80-100); Mean Platelet Volume 8.5 fl (7.4-10.4); Monocytes Absolute Auto 1.1 K/mm3 (0.1-0.6); Monocytes Percent Auto 9.3 % (2.6-8.5); Neutrophils Absolute Auto 6.1 K/mm3 (1.3-6.7); Neutrophils Percent Auto 53.9 % (45.5-73.1); Platelet Count Result 271 k/mm3 (150-375); Red Blood Count 4.64 M/mm3 (4.2-5.4); White Blood Count 11.4 K/mm3 (4.5-10.0)
[2021-05-28 21:17] VITALS: O2SAT 100
[2021-05-28 21:23] LABS: Anion Gap 7 mmol/L (8-16); Blood Urea Nitrogen 13 mg/dL (7-17); Calcium 9.3 mg/dL (8.4-10.2); Carbon Dioxide 24 mmol/L (22-30); Chloride 107 mmol/L (98-107); Estimated CRCL calculation 112 ml/min; Estimated Glomerular Filt Rate > 60; Glucose 103 mg/dL (65-110); Potassium 3.4 mmol/L (3.4-5.0); Sodium 138 mmol/L (137-145)
[2021-05-28 21:24] LABS: Prothrombin Time 12.7 Seconds (11.1-14.7)
[2021-05-28 21:25] LABS: Partial Thromboplastin Time 32.7 SECONDS (22.3-36.8)
[2021-05-28 21:27] LABS: D Dimer 0.29 ug/mL (<0.48)
[2021-05-28 21:35] LABS: Troponin I < 0.012 ng/mL (0.000-0.034)
[2021-05-28 22:19] VITALS: BP 121/63; PULSE 82; RESP 20; O2SAT 100
== END 2021-05-28 22:19 | disposition home or self-care (01) ==
PROVIDERS: Emergency Provider Emergency Medicine; PCP Physician Assistant
DX: R07.89 Other chest pain (principal); J02.8 Acute pharyngitis due to other specified organisms; Q79.60 Ehlers-Danlos syndrome, unspecified; F17.200 Nicotine dependence, unspecified, uncomplicated; R94.31 Abnormal electrocardiogram [ECG] [EKG]
CPT/HCPCS: 36415; 71046; 80048; 84484; 85025; 85380; 85610; 85730; 87081; 87880; 93005; 99284

== ENCOUNTER 2021-06-21 13:34 | Outpatient (CLI) | payer OTHER, SELFPAY ==
--- NOTE | ~2021-06-21 | US_ITS ---
EXAMINATION: US pelvic complete w TV EXAM DATE: 06/21/2021 14:14 INDICATION: Complex Cyst Of Left Ovary TECHNIQUE: Pelvic transabdominal and transvaginal sonogram was performed. There are multiple graysca le and Doppler images available for interpretation. Correlation was made with CT abdomen pelvis 022. Comparison is made to prior pelvic ultrasound from 05/20/2020, 03/18/2020. FINDINGS: Uterus measures 7.7 x 4.0 x 3.4 cm, and is morphologically normal. Endometrial stripe kassie sures 6 mm, within normal limits. There is no free pelvic fluid. The right ovary measures 2.1 x 1.8 x 2.3 cm. No torsion. There is an anechoic simple cystic region r eported in the midline measuring 4.7 cm, potentially could be the same simple cystic lesion identifie d on prior all prior studies, appears contiguous to the right ovary based on prior CT scans, could be a periadnexal cyst. No complexity to suggest this is malignancy. The left ovary not definitively identified. IMPRESSION: Chronic pelvic cystic lesion, could be right periadnexal cyst, or maybe arising from the ovary. Cyst appearance and stability consistent with benign histology. Reviewed, dictated and finalized at location A. NISTRATIVE UNDERWRITER IMPRESSION: Chronic pelvic cystic lesion, could be right periadnexal cyst, or m aybe arising from the ovary. Cyst appearance and stability consistent with mary ann ign histology.
== END 2021-06-21 13:35 | disposition home or self-care (01) ==
LOC: ANHIMG 13:34
PROVIDERS: PCP Physician Assistant; Visit Provider Nurse Practitioner Family
DX: N83.202 Unspecified ovarian cyst, left side (principal)
CPT/HCPCS: 76830; 76856

== ENCOUNTER 2021-10-20 13:15 | Outpatient (RCR) | payer OTHER, SELFPAY ==
--- NOTE | 2021-10-03 16:02 | PTOPEVAL ---
PHYSICAL THERAPY EVALUATION AND PLAN OF CARE 10-03-21 Thank you for referring Jessica Ruiz to [facility] for the diagnosis of cervicalgia. She is scheduled to be seen for therapy? 2 x/week for 3 weeks. Please review, sign, date and return this plan of care TERENCE. I agree with and certify that the following plan of care is medically necessary. Referring Physician Date Attending Provider: VAHID Young Past Medical History Source of Past Medical History Recalled from Previous Visit, Confirmed with Patient/Family Neurological History Hx Seizures Yes: as child, up to 15 yr old no longer have seizures Cardiovascular History Hx Other Cardiac Disorders Yes: cardiac palpitations- testing for it now Respiratory History Hx Respiratory Disorders No Significant History Gastrointestinal History Hx Gastroesophageal Reflux Disease Yes Genitourinary History Hx Genitourinary Disorders No Significant History Musculoskeletal History Hx Back Injury Yes: scoliosis and chronic pain Hx Other Musculoskeletal Disorders Yes: armani danlos syndrome- pain in ankles, neck, back; incr flexibility Hematological History Hx Hematological Disorders No Significant History Endocrine History Hx Endocrine Disorders No Significant History HEENT History Hx HEENT Disorders No Significant History Pain History Has Past Pain Affected Your Daily Life Yes: neck pain Evaluation Information Diagnosis cervicalgia Onset August 14, 2021 Subjective Information gradual increase in neck pain Query Text:As Reported By Patient/ recently, but chronic issues Family with neck pain; woke up and when trying to do her morning yoga routine had more neck pain; Diagnostic Tests Other Tests For This Problem Yes: CT thoracic 13' dextrascolosis;to ER Jun 07 due pain Previous Treatments Previous Treatments For This Problem electrical stim,heat helped in past PT Prior Level of Function Activity Level (Last 3 Months) Occupation professional performer--acting and muscican work Comments Additional Prior Level of Function able to do her normal Comments activities, but pain with home and recreational activities; do regular yoga and walking daily; Pain Assessment Pain Scale Pain Scale Used Numeric (1 - 10) Self Report Pain Assessment Bilateral Spine, Cervical Reported Pain Level 5
--- NOTE | 2021-10-10 15:54 | PCPTNOTE ---
Patient did not show up for scheduled appointment this date. Pt called and stated that she forgot to call in and cancel because she was out of town.
--- NOTE | 2021-10-18 10:11 | PCPTNOTE ---
Patient called & cancelled scheduled appointment this date due to not being able to leave work.
--- NOTE | 2021-10-24 11:41 | PCPTNOTE ---
pt called and canceled today's reevaluation appt due to car issues.
--- NOTE | 2021-11-17 14:43 | PCPTNOTE ---
PHYSICAL THERAPY DISCHARGE REPORT 11-17-21 Attending Provider: VAHID Young Patient:Jessica Ruiz Date of :1995 has not returned for any further treatments since 10/20/2021, therefore she will be discharged at this time. She received 3 PT sessions, from 10-03-21 to 10-20-21, for the diagnosis of neck pain. She did not show for 1 and called/canceled 2 appointments. The goals were not addressed. Thank you for referring Jessica to [facility]. Please review, sign, date and return this discharge summary TERENCE. I have been updated about the patient's current status and I agree with discharge from the above service at this time. Referring Physician Date
== END 2021-11-17 16:11 | disposition home or self-care (01) ==
LOC: ANHPT 13:15
PROVIDERS: PCP Physician Assistant; Visit Provider Physician Assistant
DX: G44.52 New daily persistent headache (NDPH) (principal); M54.2 Cervicalgia
CPT/HCPCS: 97014; 97110; 97112; 97140; 97161; G0283

== ENCOUNTER 2024-11-21 09:36 | Emergency (ER) | payer MEDICAID, SELFPAY ==
--- NOTE | ~2024-11-21 | XR_ITS ---
EXAMINATION: XR chest 2V 11/21/2024 10:05 INDICATION: Chest pain PROCEDURE: 2 view chest COMPARISON: Comparison to multiple prior studies sequentially, with oldest reviewed study dated 05/10. FINDINGS: The lungs are clear. The cardiomediastinal silhouette is within normal limits. There are no pleural effusions. There is no pneumothorax suspected. IMPRESSION: 1: NO ACUTE CARDIOPULMONARY DISEASE. Reviewed, dictated and finalized at location A.
[2024-11-21 09:43] VITALS: BP 142/73; PULSE 83; RESP 18; TEMP 36.6; O2SAT 99
--- NOTE | 2024-11-21 09:47 | ECG_ITS ---
Test Date: 2024-11-21 09:41:21 Measurements Intervals [place] Rate: 90 P: 60 AR: 171 QRS: 76 QRSD: 94 T: 43 QT: 378 QTc: 463 Interpretive Statements SINUS RHYTHM DELAYED PRECORDIAL R/S TRANSITION BORDERLINE ECG No previous ECG available for comparison Electronically Signed On 11-21-2024 10:01:10 CDT by Efraín Estrada D.O.
[2024-11-21 10:25] LABS: Hematocrit 38.9 % (37.0-47.0); Hemoglobin 12.8 g/dL (12.0-15.0); Immature Granulocyte Percent A 0.4 % (0-0.5); Lymphocytes Absolute Auto 2.57 K/mm3 (0.9-3.2); Mean Corpuscular HGB Conc 32.9 g/dl (32-36); Mean Corpuscular Hemoglobin 28.5 pg (26-34); Mean Corpuscular Volume 86.6 fl (80-100); Nucleated Red Blood Cells Absolute Auto 0.000 K/mm3 (0.0-0.012); Nucleated Red Blood Cells Perc 0.0 % (0.0-0.2); Platelet Count Result 312 k/mm3 (150-375); Red Blood Count 4.49 M/mm3 (4.2-5.4); White Blood Count 14.5 K/mm3 (4.5-10.0)
[2024-11-21] MEDS: KETOROLAC 30 MG/ML VIAL (*BKC) IV PUSH (10:25)
[2024-11-21] MEDS: LORazepam INJ (*CRX) 2 MG/ML VIAL 0.5 MG IV PUSH (10:26)
--- OUTSIDE RECORDS SUMMARY | 2024-11-21 10:37 | XMS_ITS | Clinical Summary ---
Author Organization [facility] Medical [facility] [address] Address [address] [place] [address] Care Team Providers Care Psych Specialist Name Role Phone Ayanna Horn MD Primary Care Provider [phone] Allergies No known active allergies Medications Tri-Lo-Lashell 0.18/0.215/0.25 mg-25 mcg per tabletIndications: Encounter for other contraceptive management Take 1 tablet by mouth daily 28 tablet 12 5 Active Active Problems Problem Noted Date Diagnosed Date Class 2 obesity due to exces s calories without serious comorbidity with body mass index (BMI) of 35.0 to 35.9 in adult 06/11/2024 Assessment & Plan (06/11/2024 8:44 AM RADIO DIRECTOR): BMI Follow-up includes: nutrition counseling. Encounter for other contraceptive management Assessment & Plan (06/11/2024 8:42 AM RADIO DIRECTOR): Contraception Patient recently moved to [place] and needs a new primary care provider to continue her control prescription. She is currently taking Tri-Lo-Lashell. She also requested a test due to a brief gap in her control coverage. -Continue Tri-Lo-Lashell for contraception. -Perform a test today. 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 01/08/2013 Overview (10/21/2020): epilepsy syndrome: partial complex seizures, R temporal intractable (Y/N): n Last Discussion of Intractability: onset (y/o): etiology: cryptogenic Family History: neuroimaging summary: MRI normal EEG summary: R temporal seizure types: focal - secondary generalization anticonvulsant comments: Encounters Date Type Department Care Team Description 11/21/2024 9:15 AM CDT Office Visit [facility] [address] [address] Catie Ledesma NP Other chest pain (Primary Dx); Shortness of breath 08/27/2024 Orders Only [facility] [address] [place] [address] Sharon Gonzalez RN 08/22/2024 Orders Only [address] [id number] Thalia Singh MD 08/22/2024 Orders Only [address] [address] Thalia Singh MD from Last 3 Months Immunizations Immunization Administration Dates Next Due DTaP 12/24/2001, 0,03/15/1998,01/26,1997 HPV, Quadrivalent 10/30/2014,09/19/2011 Hep A, Pediatric 12/17/2007 Hep A, Unspecified 12/07/2005 Hep B, Adolescent or Pediatric 01/26/1998,1997,1997 HiB 04/25/1999, 8,01/26/1998,07/09 IPV 12/24/2001, 0,03/01/1998,07/09 Influenza, Trivalent, Cell Culture-based MDCK, Preservative Free, Antibiotic Free, Intramuscular 01/01/2024 Influenza, Unspecified 02/14/2019 MMR 12/24/2001,04/25/1999 Meningococcal Conjugate (Menveo) 10/30/2014 Meningococcal MCV4P (Menactra) 09/19/2011 Tdap 06/11/2024,09/19/2011 Medical History Medical History Date Comments Seizures (HCC) Scoliosis Arrhythmia Arthritis Depression STD (female) EDS (Maris-Danlos syndrome) Scoliosis Epilepsy (HCC) History of PCR DNA positive for HSV2 Social History Tobacco Use Types Packs/Day Years Used Date Smoking Tobacco: Never Smokeless Tobacco: Never Tobacco Cessation:Counseling Given: Not Answered Alcohol Use Standard Drinks/Week Comments Yes 0 (1 standard drink = 0.6 oz pur e alcohol) occasionally AUDIT-C Answer Date Recorded Q1: How often do you have a drink containing alc ohol? 2-3 times a week 10/08/2022 Q2: How many drinks containi ng alcohol do you have on a typical day when you are drinking? 1 or 2 10/08/2022 Q3: How often do you have si x or more drinks on one occasion? Less than monthly 10/08/2022 PHQ-2 Answer Date Recorded PHQ-2 Total Score (If total score is 3 or more points, staff should administer the PHQ-9) 0 06/11/2024 Hunger Vital Sign Answer Date Recorded Within the past 12 months, y ou worried that your food would run out before you got the money to buy more. Never true 02/21/20 24 Within the past 12 months, t he food you bought just didn't last and you didn't have money to get more. Never true 02/21/2024 Comments No Sex and Gender Information Value Date Recorded Sex Assigned at Not on file Legal Sex Female 3:03 PM RADIO DIRECTOR Gender Identity Not on file Sexual Orientation Not on file Obstetrics History Last Filed Vital Signs Vital Sign Reading Time Taken Comments Blood Pressure 139/85 11/21/2024 9:09 AM CDT Pulse 101 11/21/2024 9:09 AM CDT Temperature 36.8 C (98.2 F) 06/11/2024 7:58 AM RADIO DIRECTOR Respiratory Rate 20 11/21/2024 9:09 AM CDT Oxygen Saturation 99% 11/21/2024 9:09 AM CDT Inhaled Oxygen Concentration - - Weight 87.5 kg (193 lb) 06/11/2024 7:58 AM RADIO DIRECTOR Height 157.5 cm (5' 2.01) 06/11/2024 7:58 AM CS T Body Mass Index 35.29 06/11/2024 7:58 AM RADIO DIRECTOR Plan of Treatment Health Maintenance Due Date Last Done Comments Cervical Cancer Screening 1997 Hepatitis C Screening 1997 Regular Well Visit/Exam 18-64 2015 Influenza Vaccine (#1) 2024 , 01/31/2021, 02/14/2019 Depression Screening 06/11/2025 06/11/2024 Varicella Vaccines (1 of 2 - 13+ 2-dose series) 06/15/2025 Postponed from 2010 (Patient declined, but will receive in the future) DTaP/Tdap/Td Vaccine (8 - Td or Tdap) 06/11/2034 06/11/2024, 09/19/2011, 12/24/2001, Additional history exists Hepatitis B Screening Completed 01/26/1998 , 1997, 1997 HPV Vaccines Completed 10/30/2014, 09/19/2011 Covid-19 Vaccine Completed 01/01/2024, , 01/04/2022, Additional history exists Pneumococcal vaccine <65 Aged Out No longer eligible based on patient's age to complete this topic Goals Goal Patient Goal Type Associated Problems Recent Progress Patient-Stated? Author CCM Chronic Pain Care Plan Chronic Care Management On track(2021 11:26 AM CDT) No Tracie Quesada RN Note: Problem: Chronic Pain Goals: 1. Minimize further functional decline 2. Maximize quality of life 3. Control pain Strategies: - Activity/exercise program recommendation - Conservative stepwise pain medicine strategy with multi-disciplinary approach - Recommend healthy lifestyle strategies and compensatory methods as needed Insurance [facility] [facility] [facility] Care Teams Psych Specialist Relationship Specialty Start Date End Date Ayanna Horn MD [address] [facility] [address], [place] [id number] PCP - General Family Medicine 06/11/24
--- OUTSIDE RECORDS SUMMARY | 2024-11-21 10:37 | XMS_ITS | Clinical Summary ---
Author Organization [facility] Address [address] [place] [address] Care Team Providers Care Kids Activities Coach Name Role Phone Unavailable Primary Care Provider Unavailabl e Social History Tobacco Use Types Packs/Day Years Used Date Smoking Tobacco: Never Assessed Comments Unknown Sex and Gender Information Value Date Recorded Sex Assigned at Not on file Legal Sex Female 2:15 PM CDT Gender Identity Not on file Sexual Orientation Not on file Plan of Treatment Health Maintenance Due Date Last Done Comments Cervical Cancer Screening Pa p Smear (Age 21 to 29) Every 3 Years 1997 Cervical Cancer Screening 1997 Annual Physical 2000 Hepatitis C 2015 DTaP, Tdap and Td Vaccines ( 1 - Tdap) 2016 Hepatitis B Vaccines (1 of 3 - 19+ 3-dose series) 2016 COVID-19 Vaccine ( - 2023-2 5 season) 2023 HPV Vaccines (1 - 3-dose SCD M series) 2024 Meningococcal B Vaccine Aged Out No l onger eligible based on patient's age to complete this topic Meningococcal Vaccine Aged Out No nisa shai eligible based on patient's age to complete this topic Pneumococcal Vaccine: Pediat rics (0 to 5 Years) and At-Risk Patients (6 to 49 Years) Aged Out No longer eligible b ased on patient's age to complete this topic RSV Immunizations Under 20 Months Aged Out No longer eligible based on patient's age to complete this topic
--- OUTSIDE RECORDS SUMMARY | 2024-11-21 10:37 | XMS_ITS | Encounter Summary ---
Author Organization [facility] Healthcare Address [address] [place] [address] Care Team Providers Care Community Youth Secretary Name Role Phone Ayanna Horn MD Primary Care Provider [phone] Reason for Visit * Reason Comments Chest Pain Chest pain and tight ness, heart beating irregularly, SOB, reports she did cocaine at 4AM and HX of anxiety. 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 Subjective/Objective Patient ID: Jessica Ruiz is a 29 y.o. female. Chief Complaint Chest Pain (Chest pain and tightness, heart beating irregularly, SOB, reports she did cocaine at 4AM and HX of anxiety. ) Patient presents to the clinic reporting chest pain and shortness of breath that started a couple hours ago. Patient reports that she had cocaine at 4:00 a.m., but denies any other drugs or alcohol. Patient denies any history of cardiac or respiratory illnesses. Patient reports that she did get thecocaine from a source that she trusts and has gotten it before in the past. Patient denies fevers. P atient reports that she has been vomiting this morning. Review of Systems Constitutional: Negative for chills, fatigue and fever. Respiratory: Positive for chest tightness and shortness of breath. Negative for cough. Cardiovascular: Positive for chest pain. Gastrointestinal: Positive for vomiting. Neurological: Negative for weakness and headaches. Physical Exam Vitals reviewed. Constitutional: General: She is not in acute distress. Appearance: Normal appearance. She is not ill-appearing. HENT: Head: Normocephalic. Mouth/Throat: Lips: [place]. Cardiovascular: Rate and Rhythm: Tachycardia present. Pulmonary: Effort: Tachypnea present. Breath sounds: Normal breath sounds. No decreased breath sounds, wheezing or rhonchi. Skin: General: Skin is warm. Neurological: Mental Status: She is alert and oriented to person, place, and time. Psychiatric: Mood and Affect: Mood normal. Vitals: 11/21/24 0906 11/21/24 0907 11/21/24 0909 BP: 126/80 144/90 139/85 Pulse: 124 125 101 Resp: (!) 32 24 20 SpO2: 99% 99% Assessment/Plan --EMS was called by the front desk coordinator employee use when patient 1st entered the building. Patient was immediately taken back to one of our exam rooms and vital signs taken and patient assessed. EMS was here within 2 minutes, EKG in office was not obtained due to EMS getting here before we can start EKG. Patient left with EMS and transported to [facility] Diagnoses and all orders for this visit: Other chest pain (Primary) Shortness of breath Patient Education: --EMS to ER Disposition Treatment plan including expectations, follow up, and return precautions discussed with patient/parent, verbalizes understanding. Medication dosage, use, and potential adverse reactions discussed with patient/parent. Advised to follow up with PCP if symptoms do not resolve as expected or sooner if condition worsens. Signs/symptoms warranting ER evaluation reviewed. Patient and/or guardian was given an opportunity to ask questions, questions answered. Catie Ledesma NP 11/21/24 9:16 AM This office note has been partially dictated using M*Modal software, and as a result portions of the record may have been created with this software. Occasional wrong-word or '[id number]' substitutions may have occurred due to the inherent limitations of voice recognition software. Read the chartcarefully and recognize, using context, where substitutions have occurred. Cosigned by Ezra Worthy MD at 11/21/2024 9:32 AM CDT documented in this encounter Plan of Treatment Not on file documented as of this encounter Goals Goal Patient Goal Type Associated Problems Recent Progress Patient-Stated? Author CCM Chronic Pain Care Plan Chronic Care Management On track(2021 11:26 AM CDT) Tracie Thomas RN Note: Problem: Chronic Pain Goals: 1. Minimize further functional decline 2. Maximize quality of life 3. Control pain Strategies: - Activity/exercise program recommendation - Conservative stepwise pain medicine strategy with multi-disciplinary approach - Recommend healthy lifestyle strategies and compensatory methods as needed documented as of this encounter Visit Diagnoses Diagnosis Other chest pain- Primary Shortness of breath documented in this encounter Care Teams Community Youth Secretary Relationship Specialty Start Date End Date Ayanna Horn MD [address] [address] PCP - General Family Medicine 06/11/24 documented as of this encounter
--- OUTSIDE RECORDS SUMMARY | 2024-11-21 10:37 | XMS_ITS | Clinical Summary ---
Author Organization [facility] Address [address] [place] [address] Care Team Providers Care Payroll Specialist Name Role Phone Carlito Cannon Primary Care Provider [phone] Source Comments [facility],non-owned Affiliates and Associated Physician Practices is amultiple site organization consisting of ambulatory clinics and hospital sitesin [place], [place] and [place]. This disclosure is being madepursuant to the Care Everywhere program and may not contain all information available regarding this patient. Last updated 18.[employer] [facility] Allergies No known active allergies Medications * Be aware that medications may not be up to date on this document. Alwaysverify current medications with the patient. 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 Overview (01/14/2015): epilepsy syndrome: partial complex seizures, R temporal intractable (Y/N): n Last Discussion of Intractability: onset (y/o): etiology: cryptogenic Family History: neuroimaging summary: MRI normal EEG summary: R temporal seizure types: focal - secondary generalization anticonvulsant comments: Family History Relation Name Status Comments Brother Alive Father Alive Mother Alive Sister 1 Alive Sister 2 Alive Social History Tobacco Use Types Packs/Day Years Used Date Smoking Tobacco: Passive Smo [place] Exposure - Never Smoker Smokeless Tobacco: Never Comments:Mom Alcohol Use Standard Drinks/Week Comments No 0 (1 standard drink = 0.6 oz pur e alcohol) Comments No Sex and Gender Information Value Date Recorded Sex Assigned at Not on file 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 Gender Identity Not on file Sexual Orientation Not on file Last Filed Vital Signs Vital Sign Reading Time Taken Comments Blood Pressure 120/70 04/21/2019 12:03 PM MUNITIONS HANDLER SUPERVISOR Pulse 72 04/21/2019 12:03 PM MUNITIONS HANDLER SUPERVISOR Temperature 37.3 C (99.2 F) 03/10/2019 2:08 PM MUNITIONS HANDLER SUPERVISOR Respiratory Rate 16 04/21/2019 12:03 PM MUNITIONS HANDLER SUPERVISOR Oxygen Saturation 98% 04/21/2019 12:03 PM MUNITIONS HANDLER SUPERVISOR Inhaled Oxygen Concentration - - Weight 74.8 kg (165 lb) 04/21/2019 12:03 PM MUNITIONS HANDLER SUPERVISOR Height 158.8 cm (5' 2.5) 04/21/2019 12:03 PM CS T Body Mass Index 29.7 04/21/2019 12:03 PM MUNITIONS HANDLER SUPERVISOR Plan of Treatment Health Maintenance Due Date Last Done Comments HIV SCREENING 2012 HEPATITIS C SCREENING 05/11/2015 DTAP/TDAP/TD VACCINES (1 - Tdap) 2016 HEPATITIS B VACCINE (1 of 3 - 19+ 3-dose series) 2016 PAP SMEAR 2018 COVID-19 VACCINE (1 - 2023-2 5 season) 2023 DEPRESSION SCREENING 04/16/2024 HPV VACCINE (1 - 3-dose SCDM series) 2024 INFLUENZA VACCINE (#1) 2024 ZOSTER VACCINE (1 of 2) 2047 HIB VACCINE Aged Out No longer eligi ble based on patient's age to complete this topic MENINGOCOCCAL (Group B) VACC INE SHARED DECISION-MAKING Aged Out No longer eligibl e based on patient's age to complete this topic MENINGOCOCCAL GROUPS A/C/Y/W VACCINE Aged Out No longer eligible b ased on patient's age to complete this topic PNEUMOCOCCAL VACCINE Aged Out No long er eligible based on patient's age to complete this topic Insurance MEDICAID - OUT OF STATE [facility] Care Teams Payroll Specialist Relationship Specialty Start Date End Date Carlito Cannon PA [address] [place] [address] PCP - General Physician Delivery Person 01/13/19
--- OUTSIDE RECORDS SUMMARY | 2024-11-21 10:38 | XMS_ITS | Clinical Summary ---
Author Organization [facility] Address [address] [place] [address] Care Team Providers Care Customer Engagement Manager Name Role Phone MoraimaCarlito collins Primary Care Provider [phone] Allergies No known active allergies Medications ibuprofen (MOTRIN) 800 MG Tablet Take 1 Tab by mouth every 8 hours. 20 Tab 08/03/2018 Active Social History Tobacco Use Types Packs/Day Years Used Date Smoking Tobacco: Some Days Cigarettes Smokeless Tobacco: Never Alcohol Use Standard Drinks/Week Comments Yes 0 (1 standard drink = 0.6 oz pur e alcohol) socially Comments No Sex and Gender Information Value Date Recorded Sex Assigned at Not on file Legal Sex Female 11:47 PM CDT Gender Identity Not on file Sexual Orientation Not on file Last Filed Vital Signs Vital Sign Reading Time Taken Comments Blood Pressure 110/64 08/03/2018 10:58 AM CDT Pulse 70 08/03/2018 10:58 AM CDT Temperature 36.3 C (97.4 F) 08/03/2018 9:20 AM CDT Respiratory Rate 16 08/03/2018 9:20 AM CDT Oxygen Saturation 99% 08/03/2018 10:58 AM CDT Inhaled Oxygen Concentration - - Weight 79.4 kg (175 lb) 08/03/2018 9:20 AM CDT Height 157.5 cm (5' 2) 08/03/2018 9:20 AM CDT Body Mass Index 32.01 08/03/2018 9:20 AM CDT Plan of Treatment Health Maintenance Due Date Last Done Comments Hepatitis C Virus (HCV) Screening 1997 SARS-COV-2 Immunization ( season) 2023 04/11/2021, 08/03/2020, 07/06/2020 Influenza Immunization (#1) 2024 02/14/2019 Respiratory Syncytial Virus (RSV) Immunization (Adult) (1 - 1-dose 75+ series) 2072 Hepatitis B Immunization Completed 998, 1997, 1997 DTaP/Tdap/Td Immunization Discontinued 2011, 12/24/2001, 04/25/1999, Additional history exists TdaP Immunization Completed 09/19/2011 Human Papillomavirus (HPV) Immunization Completed 10/30/2014, 09/19/2011 Meningococcal Immunization (ACWY) Completed 10/30/2014, 09/19/2011 Pneumococcal Immunization Combined Aged Out No longer eligible based on patient's age to complete this topic Rotavirus Immunization Aged Out No lo nger eligible based on patient's age to complete this topic Insurance MEDICAID [place] Care Teams Customer Engagement Manager Relationship Specialty Start Date End Date Carlito Cannon, [facility] [address] [place] [address] PCP - General Physician Research Quality Assurance Analyst 10/05/17
--- NOTE | 2024-11-21 10:42 | ED_ITS ---
HPI - General Adult General Chief complaint: Chest Pain Stated complaint: Chest Pain Time Seen by Provider: 11/21/24 09:45 History of Present Illness HPI narrative: Patient is a 29-year-old female who presents ER after having some chest tightness and palpitations around 6 this morning. Patient had used cocaine multiple times through the night. No history of heart disease or arrhythmia. No fevers or chills or sweats. Patient also had some anxiety with this. Related Data Home Medications ?Medication ?Instructions ?Recorded ?Confirmed ?Last Taken ?Type omeprazole 20 mg capsule,delayed 20 mg PO DAILY 12/05/20 05/28/21 Unknown History release topiramate 50 mg tablet 50 mg PO DAILY 12/05/20 05/28/21 Unknown History venlafaxine 75 mg capsule,extended 75 mg PO DAILY 12/05/20 05/28/21 Unknown History release 24 hr acyclovir 400 mg tablet 400 mg PO DAILY 05/28/21 05/28/21 Unknown History Allergies Allergy/AdvReac Type Severity Reaction Status Date / Time No Known Allergies Allergy Verified 11/21/24 13:24 Review of Systems 2 Review of Systems: All systems reviewed & are unremarkable except as noted in HPI and below Constitutional: Constitutional: Reports no additional constitutional complaints ENT: Reports system reviewed and no additional complaints, except as documented Cardiovascular: Cardiovascular: Reports no additional cardiovascular complaints Respiratory: Respiratory: Reports no additional respiratory complaints PMFSH Past Medical History Medical History Chronic back pain No significant past medical history Surgical History Surgical History No significant past surgical history Social History Social History (System 11/21/24 @ 13:24 by Hu Duque) Smoking status: Unknown if ever smoked Substance use type: marijuana Gender identity (if verbalized by the patient): Female Exam 2 Narrative: GENERAL: Well-appearing, well-nourished, and in no acute distress. HEAD: Normocephalic, atraumatic. ENT: Mucous membranes moist. CHEST: Clear to auscultation. No respiratory distress. HEART: Regular rate and rhythm. Normal peripheral pulses. ABDOMEN: Soft, nontender, nondistended. EXTREMITIES: Normal range of motion. No edema. SKIN: Warm, dry, no rash. NEURO: Alert and oriented x3. PSYCH: Normal mood and affect. Course Course Emergency Course: Troponin negative x2. Receive some Ativan. Appropriate for discharge home. Vital Signs Vital signs: Vital Signs Temperature 97.8 F 11/21/24 09:43 Pulse Rate 83 11/21/24 09:43 Respiratory Rate 18 11/21/24 09:43 Blood Pressure 142/73 H 11/21/24 09:43 Pulse Oximetry 99 11/21/24 09:43 Oxygen Delivery Room Air 11/21/24 09:43 Temperature 97.8 F 11/21/24 09:43 Pulse Rate 67 11/21/24 11:55 Respiratory Rate 18 11/21/24 09:43 Blood Pressure 142/73 H 11/21/24 09:43 Pulse Oximetry 99 11/21/24 09:43 Oxygen Delivery Room Air 11/21/24 09:43 Medical Decision Making Vital Signs Vital Signs: Vital Signs Temperature 97.8 F 11/21/24 09:43 Pulse Rate 83 11/21/24 09:43 Respiratory Rate 18 11/21/24 09:43 Blood Pressure 142/73 H 11/21/24 09:43 Pulse Oximetry 99 11/21/24 09:43 Oxygen Delivery Room Air 11/21/24 09:43 Temperature 97.8 F 11/21/24 09:43 Pulse Rate 67 11/21/24 11:55 Respiratory Rate 18 11/21/24 09:43 Blood Pressure 142/73 H 11/21/24 09:43 Pulse Oximetry 99 11/21/24 09:43 Oxygen Delivery Room Air 11/21/24 09:43 Lab Data 11/21/24 10:21 11/21/24 10:19 Labs: Lab Results 11/21/24 11/21/24 11/21/24 Range/Units 10:19 10:21 12:41 WBC 14.5 H (4.5-10.0) K/mm3 RBC 4.49 (4.2-5.4) M/mm3 Hgb 12.8 (12.0-15.0) g/dL Hct 38.9 (37.0-47.0) % MCV 86.6 (80-100) fl MCH 28.5 (26-34) pg MCHC 32.9 (32-36) g/dl RDW 13.4 (11.5-14.5) % Plt Count 312 (150-375) k/mm3 MPV 8.6 (7.4-10.4) fl Immature Gran % (Auto) 0.4 (0-0.5) % Neut % (Auto) 73.1 (45.5-73.1) % Lymph % (Auto) 17.8 L (18.3-44.2) % Terrell % (Auto) 7.2 (2.6-8.5) % Eos % (Auto) 1.2 (0-4.4) % Baso % (Auto) 0.3 (0.2-1.2) % Lymph # (Auto) 2.57 (0.9-3.2) K/mm3 Terrell # (Auto) 1.0 H (0.1-0.6) K/mm3 Eos # (Auto) 0.2 (0-0.3) K/mm3 Baso # (Auto) 0.1 (0.0-0.1) K/mm3 Abs Immat Gran (auto) 0.06 H (0.00-0.031) K/mm3 Absolute Neuts (auto) 10.6 H (1.3-6.7) K/mm3 Absolute Nucleated RBC 0.000 (0.0-0.012) K/mm3 Nucleated RBC % 0.0 (0.0-0.2) % PT 13.5 (11.1-14.7) Seconds INR 1.0 APTT 30.1 (22.3-36.8) Seconds Sodium 140 (137-145) mmol/L Potassium 3.9 (3.4-5.0) mmol/L Chloride 104 (98-107) mmol/L Carbon Dioxide 24 (22-30) mmol/L Anion Gap 12 (4-12) mmol/L BUN 7 D (7-17) mg/dL Creatinine 0.63 L (0.7-1.0) mg/dL Estim Creat Clear Calc 116 ml/min Estimated GFR > 60 (59 - ) Glucose 98 (65-110) mg/dL Calcium 9.9 (8.4-10.2) mg/dL Total Bilirubin 0.8 (0.2-1.3) mg/dL AST 31 (14-36) U/L ALT 54 H (6-35) U/L Alkaline Phosphatase 59 (38-126) U/L Troponin I 0.012 < 0.012 (0.000-0.034) ng/mL Total Protein 8.5 H (6.3-8.2) g/dL Albumin 4.5 (3.5-5.1) g/dL Lipase 44 (23-300) U/L Imaging Data Radiologist's impression: ITS Impressions Chest X-Ray 11/21/24 10:10 IMPRESSION: 1: NO ACUTE CARDIOPULMONARY DISEASE. ECG Data EKG #1: ECG completion date: 11/21/24 ECG completion time: 09:41 EKG Interpretation: normal rate (90), sinus rhythm, non-specific ST changes, normal QRS, normal QT and NL axis Discharge Plan Discharge Clinical Impression: Chest pain, Cocaine abuse Patient Disposition: Home Condition: Stable Instructions: Chest Pain (ED), Cocaine Use Disorder (ED) Additional Instructions: Please return to the emergency department if you develop severe and persistent chest pain, difficulty breathing, dizziness, leg swelling or if you are coughing up blood as these can be signs of a medical emergency. Please call your doctor for a follow up appointment to determine the need for further testing. Patient Language: Yoruba Prescriptions: No Action acyclovir 400 mg tablet 400 mg PO DAILY venlafaxine 75 mg capsule,extended release 24hr 75 mg PO DAILY omeprazole 20 mg capsule,delayed release(DR/EC) 20 mg PO DAILY topiramate 50 mg tablet 50 mg PO DAILY cyclobenzaprine 10 mg tablet 10 mg PO TID PRN (Reason: muscle spasm) Qty: 20 0RF Follow-up/Referrals: Homer,VAHID Rizo [Primary Care Provider] - 1 Week Quality HEART score for chest pain patients History: slightly suspicious ECG: normal Age: < or = to 45 years Risk factors: 1 or 2 risk factors Troponin: < or = to 1x normal limit Heart score: 1
[2024-11-21 10:44] LABS: Alanine Aminotransferase 54 U/L (6-35); Albumin Level 4.5 g/dL (3.5-5.1); Alkaline Phosphatase 59 U/L (38-126); Anion Gap 12 mmol/L (4-12); Aspartate Amino Transferase 31 U/L (14-36); Bilirubin,Total 0.8 mg/dL (0.2-1.3); Blood Urea Nitrogen 7 mg/dL (7-17); Calcium 9.9 mg/dL (8.4-10.2); Carbon Dioxide 24 mmol/L (22-30); Chloride 104 mmol/L (98-107); Estimated CRCL calculation 116 ml/min; Estimated Glomerular Filt Rate > 60; Glucose 98 mg/dL (65-110); Lipase 44 U/L (23-300); Potassium 3.9 mmol/L (3.4-5.0); Sodium 140 mmol/L (137-145); Total Protein 8.5 g/dL (6.3-8.2)
[2024-11-21 10:48] LABS: INR 1.0; Prothrombin Time 13.5 Seconds (11.1-14.7)
[2024-11-21 10:49] LABS: Partial Thromboplastin Time 30.1 Seconds (22.3-36.8)
[2024-11-21 10:55] LABS: Troponin I 0.012 ng/mL (0.000-0.034)
[2024-11-21 11:55] VITALS: PULSE 67
[2024-11-21 13:13] LABS: Troponin I < 0.012 ng/mL (0.000-0.034)
[2024-11-21 14:15] VITALS: BP 117/68; PULSE 67; RESP 18; O2SAT 99
== END 2024-11-21 14:16 | disposition home or self-care (01) ==
PROVIDERS: Emergency Provider Emergency Medicine; PCP Physician Assistant
DX: R07.89 Other chest pain (principal); F14.10 Cocaine abuse, uncomplicated; M54.9 Dorsalgia, unspecified; G89.29 Other chronic pain
CPT/HCPCS: 36415; 71046; 80053; 83690; 84484; 85025; 85610; 85730; 93005; 96374; 96375; 99284; J1885; J2060